=== PATIENT | male | born 1995 | race Two or more races ===

== ENCOUNTER → 2020-07-19 | Outpatient (CLI) | payer OTHER | END | disposition home or self-care (01) | LOC: OFIC 805 12:15 | PROVIDERS: ATTEND Otolaryngology Otology & Neurotology | DX: H69.82 Other specified disorders of Eustachian tube, left ear (principal); J31.0 Chronic rhinitis ==

== ENCOUNTER → 2020-08-19 | Outpatient (CLI) | payer OTHER | END | disposition home or self-care (01) | LOC: OFIC 805 13:08 | PROVIDERS: ATTEND Otolaryngology Otology & Neurotology | DX: H69.82 Other specified disorders of Eustachian tube, left ear (principal); J31.0 Chronic rhinitis ==

== ENCOUNTER 2020-09-27 05:15 | Day surgery (SDC) | payer OTHER ==
[~2020-09-27 05:15] MED LIST: BUSPIRONE HCL5 MG PO; PAXIL20 MG PO
[2020-09-27] MEDS ORDERED: CILOXAN5 ML OTIC (08:02)
== END 2020-09-27 10:05 | disposition home or self-care (01) ==
LOC: CIR.AMB 05:15
PROVIDERS: ATTEND Otolaryngology Otology & Neurotology
DX: H83.2X2 Labyrinthine dysfunction, left ear (principal); H73.892 Other specified disorders of tympanic membrane, left ear; Z20.828 Contact with and (suspected) exposure to other viral communicable diseases

== ENCOUNTER → 2020-10-04 | Outpatient (CLI) | payer OTHER ==
[~2020-10-04] MED LIST changes: +CILOXAN5 ML OTIC
== END | disposition home or self-care (01) ==
LOC: OFIC 805 14:25
PROVIDERS: ATTEND Otolaryngology Otology & Neurotology
DX: H69.82 Other specified disorders of Eustachian tube, left ear (principal); J31.0 Chronic rhinitis